=== PATIENT | female | born 1990 ===

== ENCOUNTER 2016-12-01 20:52 | Emergency (ER) | payer OTHER ==
[2016-12-01 20:52] VITALS: BMI 37.0
[2016-12-01 21:23] VITALS: TEMP 98.4
[2016-12-01] MEDS ORDERED: Albuterol-Ipratrop 3 mg / 0.5 (3 ml) UD IH STA (21:51)
[2016-12-01] MEDS ORDERED: Albuterol-Ipratrop 3 mg / 0.5 (3 ml) UD ONE (21:51)
[2016-12-01] MEDS ORDERED: Sodium Chloride 0.9% 1,000 ML IV STA (21:51)
--- NOTE | 2016-12-01 21:54 | ED PDOC ---
HPI: CCC, URI, Sore Throat Time Seen by Provider: 12/01/16 21:35 Chief Complaint (Nursing): Fever Chief Complaint (Provider): cough History Per: Patient History/Exam Limitations: no limitations Onset/Duration Of Symptoms: Days (3) Current Symptoms Are (Timing): Still Present Location Of Pain: Throat Associated Symptoms: Fever, Chills, Sore Throat, Cough, Sputum, Nasal Congestion , Vomiting Additional History Per: Patient Additional Complaint(s): 25 y/o female presents with cough, congestion x 3 days. Associated post- tussive vomiting, fever. Denies chest pain, shortness of breath, palpitations, abdominal pain, recent travel, sick contacts. Little relief with nyquil and tylenol. Past Medical History Reviewed: Historical Data, Nursing Documentation, Vital Signs Vital Signs: Last Vital Signs Temp 98.4 F 12/01/16 21:20 Pulse 94 H 12/01/16 21:20 Resp 17 12/01/16 21:20 BP 152/69 H 12/01/16 21:20 Pulse Ox 98 12/01/16 23:17 - Medical History PMH: No Chronic Diseases - Surgical History Surgical History: No Surg Hx - Family History Family History: States: Unknown Family Hx - Living Arrangements Living Arrangements: With Family - Home Medications Home Medications: Ambulatory Orders Medication Instructions Recorded Albuterol HFA [Ventolin HFA 90 1 puff IH Q4 PRN #1 inh 12/01/16 mcg/actuation (8 g)] Azithromycin [Zithromax] 250 mg PO DAILY #1 packet 12/01/16 Ibuprofen [Motrin Tab] 1 tab PO Q6 PRN #15 tab 12/01/16 Methylprednisolone [Medrol Dose 4 mg PO DAILY #21 mg 12/01/16 Pack (21 tabs)] Promethazine HCl/Codeine 5 ml PO HS PRN #30 ml 12/02/16 [Prometh-Codein 6.25-10 mg/5 ml] - Allergies Allergies/Adverse Reactions: Allergies Allergy/AdvReac Type Severity Reaction Status Date / Time No Known Allergies Allergy Verified 12/01/16 21:23 Review of Systems ROS Statement: Except As Marked, All Systems Reviewed And Found Negative Constitutional: Positive for: Fever, Chills ENT: Positive for: Nose Discharge, Nose Congestion Respiratory: Positive for: Cough Gastrointestinal: Positive for: Vomiting Physical Exam - Reviewed Nursing Documentation Reviewed: Yes Vital Signs Reviewed: Yes - Physical Exam Appears: Positive for: Well, Non-toxic, No Acute Distress Head Exam: Positive for: ATRAUMATIC, NORMAL INSPECTION, NORMOCEPHALIC Skin: Positive for: Normal Color Eye Exam: Positive for: Normal appearance ENT: Positive for: Nasal Congestion, Pharyngeal Erythema, Tonsillar Swelling (b/ l). Negative for: Tonsillar Exudate Cardiovascular/Chest: Positive for: Regular Rate, Rhythm Respiratory: Positive for: Normal Breath Sounds Gastrointestinal/Abdominal: Positive for: Normal Exam Back: Positive for: Normal Inspection Extremity: Positive for: Normal ROM Neurologic/Psych: Positive for: Alert, Oriented - Laboratory Results Result Diagrams: 12/01/16 22:19 12/01/16 22:19 - ECG O2 Sat by Pulse Oximetry: 100 - Radiology X-Ray: Viewed By Nd X-Ray Interpretation: No Acute Disease - Progress ED Course And Treament: labs, chest xray, flu, strep, IV fluids, IV toradol, duoneb Patient educated on findings, discharged with rx zpak, albuterol hfa, medrol dose chaparrita, promethazine with codeine. Patient educated on risk of narcotic abuse/dependence/overdose;advised ot take as needed for severe pain only. Patient demonstrates understanding. Advised follow up PMD 2-3 days. Fluids. Rest. Return ot ED for worsening/concerning symptoms. Disposition - Clinical Impression Clinical Impression: Bronchitis - Patient ED Disposition Is Patient to be Admitted: No Counseled Patient/Family Regarding: Studies Performed, Diagnosis, Need For Followup, Rx Given - Disposition Disposition: Routine/Home Disposition Time: 00:00 Condition: IMPROVED Prescriptions: Albuterol HFA [Ventolin HFA 90 mcg/actuation (8 g)] 1 puff IH Q4 PRN #1 inh PRN Reason: Wheezing Azithromycin [Zithromax] 250 mg PO DAILY #1 packet Ibuprofen [Motrin Tab] 1 tab PO Q6 PRN #15 tab PRN Reason: Pain, Moderate (4-7) Methylprednisolone [Medrol Dose Pack (21 tabs)] 4 mg PO DAILY #21 mg Promethazine HCl/Codeine [Prometh-Codein 6.25-10 mg/5 ml] 5 ml PO HS PRN #30 ml PRN Reason: Cough Instructions: Acute Bronchitis (ED)
[2016-12-01 22:22] LABS: BASO # 0.1 K/uL (0.0-0.2); BASO % 0.8 % (0.0-2.0); EOS # 0.1 K/uL (0.0-0.7); EOS % 0.9 % (0.0-4.0); HEMATOCRIT 40.9 % (34.0-47.0); LYMPH # 2.7 K/uL (1.0-4.3); MEAN CELL VOLUME 80.7 fl (81.0-99.0); MEAN CORPUSCULAR HEMOGLOBIN 26.3 pg (27.0-31.0); MEAN CORPUSCULAR HGB CONC 32.6 g/dL (33.0-37.0); MEAN PLATELET VOLUME 7.6 fl (7.2-11.7); MONO # 0.8 K/uL (0.0-0.8); MONO % 5.5 % (0.0-10.0); NEUT # 9.9 K/uL (1.8-7.0); NEUT % 72.8 % (50.0-75.0); NRBC % 0.1 % (0.0-0.0); RED CELL DISTRIBUTION WIDTH 13.3 % (11.5-14.5); WHITE BLOOD COUNT 13.6 K/uL (4.8-10.8)
[2016-12-01 22:32] LABS: ALB/GLOB RATIO 1.3 (1.0-2.1); ALKALINE PHOSPHATASE 102 U/L (38-126); ALT/SGPT 31 U/L (9-52); AST/SGOT 22 U/L (14-36); BILIRUBIN,TOTAL 0.3 mg/dl (0.2-1.3); BLOOD UREA NITROGEN 10 mg/dl (7-17); CALCIUM 9.4 mg/dL (8.4-10.2); CARBON DIOXIDE 24 mmol/L (22-30); CHLORIDE 105 mmol/L (98-107); GFR AFRICAN-AMERICAN > 60; GLUCOSE,RANDOM 87 mg/dL (65-105); SODIUM 141 mmol/l (132-148); TOTAL PROTEIN 8.4 G/DL (6.3-8.2)
[2016-12-02 01:08] VITALS: BP 118/70; PULSE 95; RESP 16; O2SAT 98
--- NOTE | 2016-12-02 12:02 | RAD ---
HISTORY: cough COMPARISON: No prior. TECHNIQUE: Chest PA and lateral FINDINGS: LUNGS: No active pulmonary disease. PLEURA: No significant pleural effusion identified. No pneumothorax apparent. CARDIOVASCULAR: Normal. OSSEOUS STRUCTURES: No significant abnormalities. VISUALIZED UPPER ABDOMEN: Normal. OTHER FINDINGS: None. IMPRESSION: No active disease.
== END 2016-12-02 00:05 | disposition home or self-care (01) ==
LOC: H.ER 20:52
DX: J40 Bronchitis, not specified as acute or chronic (principal); R05 Cough; R50.9 Fever, unspecified; R11.10 Vomiting, unspecified

== ENCOUNTER 2017-07-22 10:52 | Emergency (ER) | payer OTHER ==
[2017-07-22 10:52] VITALS: BMI 37.0
[2017-07-22] MEDS ORDERED: Sodium Chloride 0.9% 1,000 ML IV STA (13:21)
--- NOTE | 2017-07-22 13:33 | ED PDOC ---
HPI: Skin/Bite Injury Time Seen by Provider: 07/22/17 12:25 Chief Complaint (Nursing): ENT Problem Chief Complaint (Provider): Neck mass History Per: Patient History/Exam Limitations: no limitations Onset/Duration Of Symptoms: Days (x 2 weeks) Current Symptoms Are (Timing): Still Present Additional Complaint(s): Larissa Batista is a 26-year-old female who presents to the Emergency Department for evaluation of a neck mass, originally noticed 2 weeks ago. She denies any associated injury or trauma. Patient does complain of mild pain on swallowing and with movement of neck. Patient denies any chest pain or shortness of breath. PMD: Dr. Ike Chun Past Medical History Reviewed: Historical Data, Nursing Documentation, Vital Signs Vital Signs: Last Vital Signs Temp 97.9 F 07/22/17 19:12 Pulse 75 07/22/17 19:12 Resp 16 07/22/17 19:12 BP 135/80 07/22/17 19:12 Pulse Ox 99 07/22/17 19:12 - Medical History PMH: No Chronic Diseases - Surgical History Surgical History: No Surg Hx - Family History Family History: States: No Known Family Hx - Living Arrangements Living Arrangements: With Family - Social History Current smoker - smoking cessation education provided: No Alcohol: None Drugs: Denies - Home Medications Home Medications: Ambulatory Orders Medication Instructions Recorded No Known Home Med 07/22/17 - Allergies Allergies/Adverse Reactions: Allergies Allergy/AdvReac Type Severity Reaction Status Date / Time No Known Allergies Allergy Verified 07/22/17 11:34 Review of Systems ROS Statement: Except As Marked, All Systems Reviewed And Found Negative Constitutional: Negative for: Fever, Chills ENT: Negative for: Throat Pain Cardiovascular: Negative for: Chest Pain Respiratory: Negative for: Cough Gastrointestinal: Negative for: Nausea, Vomiting Skin: Positive for: Other (swelling to neck) Physical Exam - Reviewed Nursing Documentation Reviewed: Yes Vital Signs Reviewed: Yes - Physical Exam Appears: Positive for: Well, Non-toxic, No Acute Distress Head Exam: Positive for: ATRAUMATIC, NORMAL INSPECTION, NORMOCEPHALIC Skin: Positive for: Normal Color. Negative for: Rash Eye Exam: Positive for: Normal appearance ENT: Positive for: Normal ENT Inspection, TM Is/Are (normal bilaterally). Negative for: Pharyngeal Erythema, Tonsillar Exudate Neck: Positive for: Pain On Movement Of Neck (4 cm palpable mass to the left anterior neck overlying medial left clavicle. No external erythema/cellulitis or abscess, mild tenderness to palpation) Cardiovascular/Chest: Positive for: Regular Rate, Rhythm. Negative for: Murmur Respiratory: Positive for: Normal Breath Sounds. Negative for: Accessory Muscle Use, Respiratory Distress Lymphatic: Negative for: Adenopathy Neurologic/Psych: Positive for: Alert, Oriented - Laboratory Results Result Diagrams: 07/22/17 14:11 07/22/17 14:11 Urine POC: Negative - ECG O2 Sat by Pulse Oximetry: 100 (RA) Pulse Ox Interpretation: Normal - Other Rad CT soft tissue neck with IV contrast X-Ray: Read By Radiologist X-Ray Interpretation: see below Thyroid US X-Ray: Read By Radiologist X-Ray Interpretation: see below Medical Decision Making Medical Decision Making: Initial Impression: 26-year-old female with neck mass Time: 13:21 Initial Plan: CMP Free T4 FT3 TSH CBC w/ differential IV Fluids ED Urine CT Neck Soft Tissue with contrast Patient offered pain medication but she declined. CT: FINDINGS: NASOPHARYNX: Unremarkable. SUPRAHYOID NECK: Unremarkable oropharynx, oral cavity, parapharyngeal space and retropharyngeal space. INFRAHYOID NECK: Unremarkable larynx, hypopharynx, and supraglottic space. Vocal cords intact. MASS: See below GLANDS: Parotid and submandibular glands unremarkable. There is a mass in the right lobe of the thyroid measuring approximately 3.2 x 3.8 x 3.4 cm. There is extensive central low attenuation suggestive of central necrosis within a thyroid mass. Correlation with thyroid ultrasound examination is suggested on a non emergent basis. There is slight deviation of the trachea towards the left side as a result of this mass. There is no narrowing of the trachea. LYMPH NODES: No significant lymphadenopathy. Shotty subcentimeter level 1 and 2 nodes. CERVICAL SPINE: No fracture or focal lesion. VASCULAR STRUCTURES: Unremarkable. OTHER FINDINGS: None. IMPRESSION: 3.8 cm centrally necrotic mass within the right lobe of the thyroid. This should be evaluated with ultrasound examination on a nonemergent basis. There is displacement of the trachea towards the left as a result of this right lobe thyroid mass but no significant tracheal narrowing is evident. The remainder of the examination is unremarkable. US ordered based on above results US: FINDINGS: Left thyroid lobe: Unremarkable. No enlarged or calcified nodules. The LEFT lobe measures 4.2 cm x 1.2 cm x 1.2 cm. Right thyroid lobe: There is a complex mass in the central portion of the RIGHT thyroid lobe measuring 3.6 x 2.8 cm x 3.5 cm. this finding has fluid and solid components. This finding is associated with an indeterminate morphology. Fine needle aspiration biopsy recommended . The RIGHT lobe measures 5.3 cm x 2.8 cm x 3.1 cm. Isthmus: Unremarkable. No enlarged or calcified nodules. Measures 6.5 mm Lymph nodes: Unremarkable. No lymphadenopathy. IMPRESSION: 1. Complex mass RIGHT thyroid lobe indeterminate morphology fine-needle aspiration recommended. 2. Otherwise negative thyroid sonogram Case was d/w PMD, Dr. Chun, he is aware of above findings, he states to instruct patient to follow up in his office in the morning. Patient was given copies of all diagnostic testing results. She verbalized understanding of need for close follow-up with primary doctor. Scribe Attestation: Documented by Brittany Maldonado, acting as a scribe for Kiah Dempsey PA-C Provider Scribe Attestation: All medical record entries made by the Scribe were at my direction and personally dictated by me. I have reviewed the chart and agree that the record accurately reflects my personal performance of the history, physical exam, medical decision making, and the department course for this patient. I have also personally directed, reviewed, and agree with the discharge instructions and disposition. Disposition - Clinical Impression Clinical Impression: Thyroid mass - Patient ED Disposition Is Patient to be Admitted: No Counseled Patient/Family Regarding: Studies Performed, Diagnosis, Need For Followup - Disposition Referrals: Ike Chun MD [Family Provider] - Disposition: Routine/Home Disposition Time: 17:09 Condition: STABLE Additional Instructions: Follow up tomorrow with Dr. Chun in his office. Call first thing in the morning to arrange appointment time for tomorrow. Instructions: Thyroid Nodules (ED) Forms: [employer] (Bengali) Results - Lab Results Lab Results: 07/22/17 07/22/17 07/22/17 14:11 14:11 14:11 WBC 11.5 H RBC 5.29 H Hgb 13.9 Hct 43.1 MCV 81.6 MCH 26.3 L MCHC 32.2 L RDW 13.3 Plt Count 371 MPV 7.8 Neut % (Auto) 65.4 Lymph % (Auto) 27.2 [place] % (Auto) 6.2 Eos % (Auto) 0.7 Baso % (Auto) 0.5 Neut # 7.5 H Lymph # 3.1 [place] # 0.7 Eos # 0.1 Baso # 0.1 Sodium 142 Potassium 4.1 Chloride 104 Carbon Dioxide 24 Anion Gap 18 BUN 9 Creatinine 0.7 Est GFR ( Amer) > 60 Est GFR (Non-Af Amer) > 60 Random Glucose 89 Calcium 9.5 Total Bilirubin 0.3 AST 21 ALT 28 Alkaline Phosphatase 100 Total Protein 8.6 H Albumin 4.7 Globulin 3.9 Albumin/Globulin Ratio 1.2 Free T4 0.98 Free T3 pg/mL Pending TSH 3rd Generation 1.27
[2017-07-22 14:21] LABS: BASO # 0.1 K/uL (0.0-0.2); BASO % 0.5 % (0.0-2.0); EOS # 0.1 K/uL (0.0-0.7); EOS % 0.7 % (0.0-4.0); HEMOGLOBIN 13.9 g/dL (12.0-16.0); LYMPH # 3.1 K/uL (1.0-4.3); LYMPH % 27.2 % (20.0-40.0); MEAN CELL VOLUME 81.6 fl (81.0-99.0); MEAN CORPUSCULAR HEMOGLOBIN 26.3 pg (27.0-31.0); MEAN CORPUSCULAR HGB CONC 32.2 g/dL (33.0-37.0); MEAN PLATELET VOLUME 7.8 fl (7.2-11.7); MONO # 0.7 K/uL (0.0-0.8); MONO % 6.2 % (0.0-10.0); NEUT # 7.5 K/uL (1.8-7.0); NEUT % 65.4 % (50.0-75.0); NRBC % 0.1 % (0.0-0.0); RBC 5.29 Mil/uL (3.80-5.20); RED CELL DISTRIBUTION WIDTH 13.3 % (11.5-14.5); WHITE BLOOD COUNT 11.5 K/uL (4.8-10.8)
[2017-07-22 14:32] LABS: ALBUMIN 4.7 g/dL (3.5-5.0); ALT/SGPT 28 U/L (9-52); AST/SGOT 21 U/L (14-36); BLOOD UREA NITROGEN 9 mg/dl (7-17); CALCIUM 9.5 mg/dL (8.4-10.2); GFR AFRICAN-AMERICAN > 60; GFR NON-AFRICAN AMERICAN > 60
[2017-07-22 14:46] LABS: ALB/GLOB RATIO 1.2 (1.0-2.1)
[2017-07-22] MEDS ORDERED: Iohexol 300 100 ML IJ ONE (15:40)
[2017-07-22] MEDS ORDERED: Sodium Chloride 0.9% 50 ML IV ONE (15:41)
--- NOTE | 2017-07-22 16:44 | CT ---
PROCEDURE: CT NECK WITH CONTRAST HISTORY: right anterior neck mass COMPARISON: None TECHNIQUE: CT of the neck with intravenous contrast. Coronal and sagittal reformats generated. Intravenous contrast dose: 80 mL Omnipaque 300 Radiation dose: DLP 846.41 mGy-cm This CT exam was performed using one or more of the following dose reduction techniques: Automated exposure control, adjustment of the mA and/or kV according to patient size, and/or use of iterative reconstruction technique. FINDINGS: NASOPHARYNX: Unremarkable. SUPRAHYOID NECK: Unremarkable oropharynx, oral cavity, parapharyngeal space and retropharyngeal space. INFRAHYOID NECK: Unremarkable larynx, hypopharynx, and supraglottic space. Vocal cords intact. MASS: See below GLANDS: Parotid and submandibular glands unremarkable. There is a mass in the right lobe of the thyroid measuring approximately 3.2 x 3.8 x 3.4 cm. There is extensive central low attenuation suggestive of central necrosis within a thyroid mass. Correlation with thyroid ultrasound examination is suggested on a non emergent basis. There is slight deviation of the trachea towards the left side as a result of this mass. There is no narrowing of the trachea. LYMPH NODES: No significant lymphadenopathy. Shotty subcentimeter level 1 and 2 nodes. CERVICAL SPINE: No fracture or focal lesion. VASCULAR STRUCTURES: Unremarkable. OTHER FINDINGS: None. IMPRESSION: 3.8 cm centrally necrotic mass within the right lobe of the thyroid. This should be evaluated with ultrasound examination on a nonemergent basis. There is displacement of the trachea towards the left as a result of this right lobe thyroid mass but no significant tracheal narrowing is evident. The remainder of the examination is unremarkable.
[2017-07-22 19:13] VITALS: BP 135/80; PULSE 75; RESP 16; TEMP 97.9
[2017-07-22 20:15] VITALS: O2SAT 100
--- NOTE | 2017-07-23 10:02 | US ---
HISTORY: assess thyroid mass noted on CT TECHNIQUE: Sonographic evaluation of the thyroid gland. COMPARISON: CT neck 07/22/2017 FINDINGS: RIGHT LOBE: Measures 5.4 x 3.1 x 2.9 cm. Heterogeneous Nodules: Large centrally necrotic mass, measures 3.7 x 3.5 x 2.9 cm corresponding to a mass identified on CT examination of the same date. Extensive liquefactive necrosis. Multiple punctate calcifications noted. No other discrete mass identified. LEFT LOBE: Measures 4.2 x 1.3 x 1.2 cm. Normal echotexture and flow. Nodules: None ISTHMUS: Measures 0.7 cm. Normal echotexture and flow. Nodules: None OTHER FINDINGS: None . IMPRESSION: Solitary large necrotic mass in the right lobe of the thyroid, 3.7 cm greatest dimension. No additional abnormality. Recommend further evaluation with percutaneous biopsy.
== END 2017-07-22 20:24 | disposition home or self-care (01) ==
LOC: H.ER 10:52
DX: E04.1 Nontoxic single thyroid nodule (principal); E07.9 Disorder of thyroid, unspecified
CPT/HCPCS: 70491; 76536; 80053; 81025; 84439; 84443; 84481; 85025; 96360; 99281; J7040; Q9967

== ENCOUNTER 2017-11-23 00:37 | Emergency (ER) | payer OTHER ==
[2017-11-23 00:37] VITALS: BMI 37.0
[2017-11-23 00:47] VITALS: O2SAT 99
--- NOTE | 2017-11-23 01:13 | ED PDOC ---
HPI: CCC, URI, Sore Throat Time Seen by Provider: 11/23/17 00:47 Chief Complaint (Nursing): Cough, Cold, Congestion Chief Complaint (Provider): Cough x 3 days, temp 101 at home History Per: Patient History/Exam Limitations: no limitations Onset/Duration Of Symptoms: Days Current Symptoms Are (Timing): Still Present Location Of Pain: None Sick Contacts (Context): None Associated Symptoms: Fever, Chills, Cough, Myalgias. denies: Sore Throat, Sputum Ear Symptoms: Bilateral: None Additional Complaint(s): 26 yo female with no medical problems presents with 3 days of cough. Mother states temp the highest was 101.0 at home. Pt states she is coughing so much it is making her vomit. Pt states she has not taken cough medication at home. Daughter also being seen for cough. Past Medical History Reviewed: Historical Data, Nursing Documentation, Vital Signs Vital Signs: Last Vital Signs Temp 99.2 F 11/23/17 00:44 Pulse 109 H 11/23/17 00:44 Resp 18 11/23/17 00:44 BP 137/86 11/23/17 00:44 Pulse Ox 99 11/23/17 01:14 - Medical History PMH: No Chronic Diseases - Surgical History Surgical History: No Surg Hx - Family History Family History: States: Unknown Family Hx - Living Arrangements Living Arrangements: With Family - Social History Current smoker - smoking cessation education provided: No Alcohol: None - Home Medications Home Medications: Ambulatory Orders Medication Instructions Recorded Azithromycin [Zithromax] 250 mg PO DAILY #6 tab 11/23/17 - Allergies Allergies/Adverse Reactions: Allergies Allergy/AdvReac Type Severity Reaction Status Date / Time No Known Allergies Allergy Verified 07/22/17 11:34 Review of Systems ROS Statement: Except As Marked, All Systems Reviewed And Found Negative Constitutional: Negative for: Fever, Chills Respiratory: Positive for: Cough. Negative for: Shortness of Breath Skin: Negative for: Rash Physical Exam - Reviewed Nursing Documentation Reviewed: Yes Vital Signs Reviewed: Yes - Physical Exam Appears: Positive for: Well, Non-toxic, No Acute Distress Head Exam: Positive for: ATRAUMATIC, NORMAL INSPECTION, NORMOCEPHALIC Skin: Positive for: Normal Color, Warm, DRY Eye Exam: Positive for: Normal appearance ENT: Positive for: Normal ENT Inspection Neck: Positive for: Normal, Painless ROM Cardiovascular/Chest: Positive for: Regular Rate, Rhythm Respiratory: Positive for: Normal Breath Sounds. Negative for: Accessory Muscle Use, Respiratory Distress Back: Positive for: Normal Inspection Extremity: Positive for: Normal ROM Neurologic/Psych: Positive for: Alert, Oriented - ECG O2 Sat by Pulse Oximetry: 99 Disposition - Clinical Impression Clinical Impression: Bronchitis - Patient ED Disposition Is Patient to be Admitted: No Counseled Patient/Family Regarding: Diagnosis, Need For Followup, Rx Given - Disposition Disposition: Routine/Home Disposition Time: 02:19 Condition: STABLE Prescriptions: Azithromycin [Zithromax] 250 mg PO DAILY #6 tab Instructions: Acute Bronchitis Forms: [employer] (Belarusian)
[2017-11-23 02:34] VITALS: BP 118/71; PULSE 77; RESP 16; TEMP 98.3
--- NOTE | 2017-11-23 08:33 | RAD ---
HISTORY: COMPARISON: 12/01/2016. TECHNIQUE: Chest PA and lateral FINDINGS: LINES AND TUBES: None. LUNG AND PLEURA: The lungs are well inflated and clear. No pleural effusion or pneumothorax. HEART AND MEDIASTINUM: The heart is not enlarged. The hilar and mediastinal contours are within normal limits. SKELETAL STRUCTURES: The bony structures are within normal limits for the patient's age. VISUALIZED UPPER ABDOMEN: Normal. OTHER FINDINGS: None. IMPRESSION: No active pulmonary disease.
== END 2017-11-23 03:00 | disposition home or self-care (01) ==
LOC: H.ER 00:37
DX: J40 Bronchitis, not specified as acute or chronic (principal)